=== PATIENT | female | born 1960 | race American Indian/Alaskan Native ===

== ENCOUNTER 2021-12-02 15:25 | Inpatient (IN) | payer MEDICARE ==
--- NOTE | 2021-12-02 15:43 | Emergency Department Report ---
ED Neuro Deficit HPI - General Chief Complaint: Neuro Symptoms/Deficit Stated Complaint: POSS STROKE Time Seen by Provider: 12/02/21 15:29 Source: patient, EMS Mode of arrival: Stretcher Limitations: No Limitations - History of Present Illness Initial Comments: 61-year-old female the past medical history of hypertension and TIA in July 2021 with full recovery (within 30 min without TPA administration) presents to the hospital with complaints of stroke symptoms sudden onset at 2:15 PM while at work. Patient complains of feeling dizzy, double vision, slurred speech. EMS reports that in route to the hospital at approximately 15 they noticed an imp rovement in her neurologic symptoms and clearing of her speech. At time of my assessment at the door at approximately 3:30 PM patient has persistent slurred speech, eye-movement deficit, and complains of lightheadedness therefore code stroke initiated. EMS reports a blood glucose of 111. Patient is currently on aspirin 81 mg with denies other anticoagulant use - Related Data Allergies/Adverse Reactions: Allergies Allergy/AdvReac Type Severity Reaction Status Date / Time No Known Allergies Allergy Unverified 12/02/21 15:35 ED Review of Systems ROS: Stated complaint: POSS STROKE Other details as noted in HPI Comment: All other systems reviewed and negative ED Past Medical Hx - Past Medical History Hx Hypertension: Yes Hx CVA: Yes ED Neuro Physical Exam - General Limitations: No Limitations Suspected Stroke: Yes - NIHSS Assessment Interval: Baseline 1a. Level of Consciousness: alert/keenly responsive 1b. LOC Questions: answers both correctly 1c. LOC Commands: performs tasks correctly 2. Best Gaze: partial gaze palsy (left eye will not cross midline on medial gaze) 3. Visual: no visual loss 4. Facial Palsy: normal symmetrical movement 5b. Motor Arm Right: no drift 5a. Motor Arm Left: no drift 6a. Motor Leg Left: no drift 6b. Motor Leg Right: no drift 7. Limb Ataxia: present 1 limb (left arm) 8. Sensory: normal 9. Best Language: no aphasia 10. Dysarthria: mild/moderate dysarthria 11. Extinction/Inattention: no abnormality Total Score: 3 Stroke Severity: Minor Stroke - Other Other exam information: General: No acute distress Head: Atraumatic Eyes: normal appearance ENT: Moist mucous membranes Neck: Normal appearance, no midline tenderness Chest: Clear to auscultation bilaterally CV: Regular rate and rhythm Abdomen: Soft, normal bowel sounds, nontender, nondistended, no rebound or guarding Back: Normal inspection Extremity: Normal inspection, full range of motion Neuro: Alert, see NIH stroke scale Psych: Appropriate behavior Skin: No rash ED Course Vital Signs 12/02/21 12/02/21 12/02/21 15:30 16:18 16:30 Temperature 98.9 F Pulse Rate 80 78 Pulse Rate [ Left Arm] Respiratory 18 19 Rate Respiratory Rate [Left Arm] Blood Pressure Blood Pressure [Left Arm] Blood Pressure 163/94 [Left] O2 Sat by Pulse 98 98 100 Oximetry O2 Sat by Pulse Oximetry [Left Arm] 12/02/21 12/02/21 12/02/21 16:31 16:45 16:51 Temperature Pulse Rate 80 77 Pulse Rate [ 73 Left Arm] Respiratory 22 22 Rate Respiratory 16 Rate [Left Arm] Blood Pressure Blood Pressure 135/68 [Left Arm] Blood Pressure [Left] O2 Sat by Pulse 97 98 Oximetry O2 Sat by Pulse 99 Oximetry [Left Arm] 12/02/21 12/02/21 12/02/21 17:00 17:06 17:15 Temperature Pulse Rate 73 74 Pulse Rate [ 73 Left Arm] Respiratory 20 19 Rate Respiratory 16 Rate [Left Arm] Blood Pressure 141/68 140/70 Blood Pressure 138/66 [Left Arm] Blood Pressure [Left] O2 Sat by Pulse 100 97 Oximetry O2 Sat by Pulse 99 Oximetry [Left Arm] 12/02/21 12/02/21 12/02/21 17:21 17:31 17:36 Temperature Pulse Rate 77 Pulse Rate [ 70 74 Left Arm] Respiratory 19 Rate Respiratory 16 20 Rate [Left Arm] Blood Pressure 138/75 Blood Pressure 140/70 138/75 [Left Arm] Blood Pressure [Left] O2 Sat by Pulse 97 Oximetry O2 Sat by Pulse 97 97 Oximetry [Left Arm] 12/02/21 12/02/21 12/02/21 17:45 17:51 18:00 Temperature Pulse Rate 74 75 Pulse Rate [ 77 Left Arm] Respiratory 17 16 Rate Respiratory 16 Rate [Left Arm] Blood Pressure 132/62 153/73 Blood Pressure 132/62 [Left Arm] Blood Pressure [Left] O2 Sat by Pulse 95 99 Oximetry O2 Sat by Pulse 97 Oximetry [Left Arm] 12/02/21 12/02/21 12/02/21 18:06 18:15 18:21 Temperature Pulse Rate 76 Pulse Rate [ 80 82 Left Arm] Respiratory 17 Rate Respiratory 16 20 Rate [Left Arm] Blood Pressure 144/74 Blood Pressure 144/74 152/72 [Left Arm] Blood Pressure [Left] O2 Sat by Pulse 97 Oximetry O2 Sat by Pulse 100 100 Oximetry [Left Arm] 12/02/21 12/02/21 12/02/21 18:30 18:36 18:45 Temperature Pulse Rate 79 73 Pulse Rate [ 74 Left Arm] Respiratory 17 20 Rate Respiratory 20 Rate [Left Arm] Blood Pressure 152/72 152/72 Blood Pressure 128/67 [Left Arm] Blood Pressure [Left] O2 Sat by Pulse 98 Oximetry O2 Sat by Pulse 100 Oximetry [Left Arm] - Reevaluation(s) Reevaluation #1: 12/02/21 17:14 Reassessed patient due to concerns of headache after initiation of tPA. Patient states that she did have a mild headache but it has currently resolved and she does not have the pain. We will continue with tPA infusion - Consultations Consultation #1: 12/02/21 15:38 Case discussed with telemetry neurologist 12/02/21 16:32 tPA orders placed after receiving results of CT imaging studies. Patient has been consented for tPA by telemetry neurologist. I rediscussed tPA administration with the patient and she once again consents to treatment. Nurse informed that tPA orders have been placed. Call placed to [place] to approve admission here at [facility] 12/02/21 16:52 case dw Eddie Trujillo and pt may be admitted here. 12/02/21 19:38 case d/w Dr Bob critical care attending, will consult. - Lab Data Result diagrams: 12/02/21 16:17 12/02/21 16:17 Lab Results 12/02/21 12/02/21 12/02/21 Range/Units 16:17 16:17 16:17 WBC 5.9 (4.5-11.0) K/mm3 RBC 3.88 (3.65-5.03) M/mm3 Hgb 11.6 (10.1-14.3) gm/dl Hct 33.8 (30.3-42.9) % MCV 87 (79-97) fl MCH 30 (28-32) pg MCHC 34 (30-34) % RDW 14.1 (13.2-15.2) % Plt Count 239 (140-440) K/mm3 Lymph % (Auto) 33.7 (13.4-35.0) % [place] % (Auto) 8.9 H (0.0-7.3) % Eos % (Auto) 3.5 (0.0-4.3) % Baso % (Auto) 1.3 (0.0-1.8) % Lymph # (Auto) 2.0 (1.2-5.4) K/mm3 [place] # (Auto) 0.5 (0.0-0.8) K/mm3 Eos # (Auto) 0.2 (0.0-0.4) K/mm3 Baso # (Auto) 0.1 (0.0-0.1) K/mm3 Seg Neutrophils % 52.6 (40.0-70.0) % Seg Neutrophils # 3.1 (1.8-7.7) K/mm3 PT 13.4 (12.2-14.9) Sec. INR 0.92 (0.87-1.13) APTT 24.7 (24.2-36.6) Sec. Thrombin Time 18.0 (15.1-19.6) Sec. Sodium 136 L (137-145) mmol/L Potassium 3.9 (3.6-5.0) mmol/L Chloride 100.6 (98-107) mmol/L Carbon Dioxide 25 (22-30) mmol/L Anion Gap 14 mmol/L BUN 13 (7-17) mg/dL Creatinine 0.7 (0.6-1.2) mg/dL Estimated GFR > 60 ml/min BUN/Creatinine Ratio 19 % Glucose 107 H (65-100) mg/dL Calcium 8.9 (8.4-10.2) mg/dL Total Bilirubin < 0.20 (0.1-1.2) mg/dL AST 20 (5-40) units/L ALT 24 (7-56) units/L Alkaline Phosphatase 73 (35-129) units/L Total Creatine Kinase 167 H (30-135) units/L CK-MB (CK-2) 2.6 (0.0-4.0) ng/mL CK-MB (CK-2) Rel Index 1.5 (0-4) Troponin T < 0.010 (0.00-0.029) ng/mL Total Protein 7.6 (6.3-8.2) g/dL Albumin 3.5 L (3.9-5) g/dL Albumin/Globulin Ratio 0.9 % - EKG Data -: EKG Interpreted by [facility] EKG shows normal: sinus rhythm, ST-T waves (no stemi) Rate: normal (78) When compared to previous EKG there are: no significant change (Peer to EMS EKG performed at 3:12 PM prior to arrival) - Radiology Data Radiology results: report reviewed CTA HEAD AND NECK WITH CONTRAST HISTORY: Stroke symptoms COMPARISON: None. TECHNIQUE: All CT scans at this location are performed using CT dose reduction for ALARA by means of automated exposure control.. 3-D/MIP reformats postprocessed. Percentage stenosis is determined by direct quantitative measurements of diseased internal carotid artery diameter compared with normal distal internal carotid artery reference segments or by criteria similar to NASCET where applicable. CONTRAST: 100 ml of Omnipaque 350 FINDINGS: CT HEAD: BRAIN / INTRACRANIAL CONTENTS: No acute hemorrhage, mass effect, midline shift, or hydrocephalus. No appreciable acute large territorial or lacunar infarct. Chronic infarct is seen in the left frontal opercular region. ORBITS: No significant abnormality of visualized orbits. SINUSES / MASTOIDS: No significant abnormality of visualized sinuses and mastoid air cells. CTA HEAD: Intracranial vertebral arteries: The left vertebral artery ends in the left PICA on a developmental basis. Basilar artery: No significant abnormality. Posterior cerebral arteries: origin of the bilateral posterior cerebral arteries is observed. Intracranial internal carotid arteries: Mild atherosclerotic plaque in both carotid siphons without significant stenosis. Anterior cerebral arteries: No significant abnormality. Middle cerebral arteries: No significant abnormality. Dural venous sinuses:Not optimally opacified. No significant abnormality. CTA NECK: Aortic arch: Mild atherosclerotic plaque without significant stenosis. 2 vessel branching pattern. Cervical vertebral arteries: Developmental dominance of the right vertebral artery without significant stenosis. Common carotid arteries: No significant abnormality. Cervical internal carotid arteries: Mild atherosclerotic plaque in both carotid bulbs and proximal cervical ICAs without significant stenosis. Additional findings: Emphysema in the visualized lung apices. IMPRESSION: 1. No acute intracranial abnormality. 2. No flow-limiting stenosis or large vessel occlusion in the neck or intracranial arteries. - Medical Decision Making 61-year-old female presents to the hospital with stroke symptoms. Patient received tPA in the ED. Neurology consult appreciated. CT head, CT angio head and neck do not show acute findings. Labs unremarkable. EKG normal sinus. Patient will be admitted to ICU for further stroke treatment and work-up Critical Care Time: Yes Critical care time in (mins) excluding proc time.: 40 Critical care attestation.: If time is entered above; I have spent that time in minutes in the direct care of this critically ill patient, excluding procedure time. Critical Care Time: 40 Minutes of critical care time excluding procedures were used in the care of the patient. I obtained history from EMS at the bedside. I discussed treatment plan with the nursing team members. I reviewed electronic record. Patient required multiple interventions and reassessments. Spoke with hospitalist and consultants for collaborative care ED Disposition Clinical Impression: Acute CVA (cerebrovascular accident), Slurred speech, Diplopia, Received intravenous tissue plasminogen activator (tPA) in emergency department Disposition: ADMITTED INPATIENT Is pt being admited?: Yes Does the pt Need Aspirin: No Condition: Stable Time of Disposition: 17:20 (Dr. Dee/hospitalist)
[2021-12-02] MEDS ORDERED: ALTEPLASE 100 MG INJ KIT ONE ×2 (16:08→16:23)
--- NOTE | 2021-12-02 16:13 | Emergency Department Report ---
Blank Doc - Documentation Documentation: [facility] Consult Note # Demographics Consult Type: Acute Stroke Level 1 (0-4.5 hrs) Patient Location: Emergency Room First Name: Aislinn Carter Last Name: Luis Date of : 1960 Age: 61 Gender: Female Facility: [facility] Time of Initial Page (Eastern Time): 12/02/2021, 15:34 Time of Return Call (Eastern Time): 12/02/2021, 15:35 # HPI History: 61 year old female with hx of stroke in the past with no residual deficits presents from work with vertigo, diplopia and dysarthria. Pts symptoms resolved by EMS assessment at 3:15 pm and recurred in ED as per ED provider assessment. Noted right MLF involvement as well as dysarthria. Pt had similar episode in July but did not get tpa and states it improved on its own in about 30 mins. Last Known Normal: 3:15 pm # Scores Level of Consciousness 1a: [0] = Alert; keenly responsive LOC Questions 1b: [0] = Answers both questions correctly LOC Commands 1c: [0] = Performs both tasks correctly Best Gaze 2: [0] = Normal Visual 3: [0] = No visual loss Facial Palsy 4: [0] = Normal symmetrical movements Motor Arm Left 5a: [0] = No drift Motor Arm Right 5b: [0] = No drift Motor Leg Left 6a: [1] = Drift Motor Leg Right 6b: [0] = No drift Limb Ataxia 7: [0] = Absent Sensory 8: [1] = [id number] sensory loss Best Language 9: [0] = No aphasia Dysarthria 10: [1] = [id number] dysarthria Extinction and Inattention 11: [0] = No abnormality NIHSS Total: 3 # Exam Cranial Nerves: right mlf # [id number] Past Medical History: hypertension stroke Social History: non-smoker occasional alcohol no drugs lives with family # Data Head CT: no bleed preliminarily reviewed by me, please refer to radiology read for official reading per radiologist read # Assessment Impression: Likely acute stroke. Pt meets tpa criteria. Pending official CTH report. I did not see any obvious hemorrhage. Stroke work up. # Plan Thrombolytic/Intervention: IV thrombolytic and possible IA candidate Thrombolytic Dosing: IV alteplase 0.9 mg/kg, max dose 90 mg; 10% of dose given over 1 minute IVP, remaining 90% given as infusion over 1 hour Thrombolytic Exclusion: > 4.5 hours Possible IA Candidate: CTA pending Intraarterial Exclusion: cta pending Time IV Thrombolytic Recommended ( Time): 12/02/2021, 15:11 Blood Pressure Management: IV fluid bolus Labs: CBC comprehensive metabolic panel hemoglobin A1c lipid panel troponin TSH ua Imaging: (urgency: STAT): CT Head without contrast CT Angiogram Head and CT Angiogram Neck Imaging: (urgency: routine): MRI Brain without contrast Diagnostic Test: echo with bubble study Thrombolytic Administration Recommendations: I reviewed the risks/benefits/alternatives of IV thrombolytic therapy with the patient. They understand there is potential of life threatening hemorrhage from IV thrombolysis. I stated that I believe benefits outweighs risk. They wish to proceed with IV thrombolytic therapy. I have collected independent history specific to time last normal or last known well. We have collaborated with the ED provider and at this time, we have the most current timeline with the information that is available. BP goal< 180/105 for 24hrs post Thrombolytic administration Use Labetolol 10-20mg IV prn or Nicardipine gtt to maintain BP parameters No antiplatelets or anticoagulants for next 24 hrs unless indicated for emergent IA procedure or other life threatening situation ICU admission Call back if there is any decline in neurological condition Transfer to facility that is IA capable for consideration of mechanical thrombectomy symptoms deemed to be disabling, despite low NIHSS Other: If patient has any neurological deterioration please call me back immediately telemetry monitoring I have discussed my recommendations with the referring provider Disposition: admit # Demographics First Name: Aislinn Carter Last Name: Luis Facility: [facility]
[2021-12-02 16:26] LABS: Basophils # (Auto) 0.1 K/mm3 (0.0-0.1); Basophils % (Auto) 1.3 % (0.0-1.8); Eosinophils # (Auto) 0.2 K/mm3 (0.0-0.4); Eosinophils % (Auto) 3.5 % (0.0-4.3); Hematocrit 33.8 % (30.3-42.9); Hemoglobin 11.6 gm/dl (10.1-14.3); Lymphocytes % (Auto) 33.7 % (13.4-35.0); Mean Corpuscular HGB Conc 34 % (30-34); Mean Corpuscular Volume 87 fl (79-97); Monocytes # (Auto) 0.5 K/mm3 (0.0-0.8); Monocytes % (Auto) 8.9 % (0.0-7.3); Platelet Count 239 K/mm3 (140-440); Red Blood Count 3.88 M/mm3 (3.65-5.03); Red Cell Distribution Width 14.1 % (13.2-15.2)
--- NOTE | 2021-12-02 16:30 | Cat Scan Report ---
CTA HEAD AND NECK WITH CONTRAST HISTORY: Stroke symptoms COMPARISON: None. TECHNIQUE: All CT scans at this location are performed using CT dose reduction for ALARA by means of automated exposure control.. 3-D/MIP reformats postprocessed. Percentage stenosis is determined by d irect quantitative measurements of diseased internal carotid artery diameter compared with normal dis theresa internal carotid artery reference segments or by criteria similar to NASCET where applicable. CONTRAST: 100 ml of Omnipaque 350 FINDINGS: CT HEAD: BRAIN / INTRACRANIAL CONTENTS: No acute hemorrhage, mass effect, midline shift, or hydrocephalus. No appreciable acute large territorial or lacunar infarct. Chronic infarct is seen in the left frontal o percular region. ORBITS: No significant abnormality of visualized orbits. SINUSES / MASTOIDS: No significant abnormality of visualized sinuses and mastoid air cells. CTA HEAD: Intracranial vertebral arteries: The left vertebral artery ends in the left PICA on a developmental b asis. Basilar artery: No significant abnormality. Posterior cerebral arteries: origin of the bilateral posterior cerebral arteries is observed. Intracranial internal carotid arteries: Mild atherosclerotic plaque in both carotid siphons without s ignificant stenosis. Anterior cerebral arteries: No significant abnormality. Middle cerebral arteries: No significant abnormality. Dural venous sinuses:Not optimally opacified. No significant abnormality. CTA NECK: Aortic arch: Mild atherosclerotic plaque without significant stenosis. 2 vessel branching pattern. Cervical vertebral arteries: Developmental dominance of the right vertebral artery without significan t stenosis. Common carotid arteries: No significant abnormality. Cervical internal carotid arteries: Mild atherosclerotic plaque in both carotid bulbs and proximal ce rvical ICAs without significant stenosis. Additional findings: Emphysema in the visualized lung apices. IMPRESSION: 1. No acute intracranial abnormality. 2. No flow-limiting stenosis or large vessel occlusion in the neck or intracranial arteries. Signer Name: Jacobo Ch MD Signed: 12/02/2021 4:26 PM Workstation Name: [id number]
[2021-12-02] MEDS ORDERED: SODIUM CHLORIDE 0.9% 50 ML IVPB IV ONE (16:32)
[2021-12-02] MEDS ORDERED: ALTEPLASE 100 MG INJ KIT IV ONE ×2 (16:32)
[2021-12-02 16:47] LABS: INR 0.92 (0.87-1.13); Partial Thromboplastin Time 24.7 Sec. (24.2-36.6)
[2021-12-02 16:55] LABS: Creatine Kinase MB 2.6 ng/mL (0.0-4.0)
[2021-12-02 16:56] LABS: Alanine Aminotransferase 24 units/L (7-56); Albumin 3.5 g/dL (3.9-5); Blood Urea Nitrogen 13 mg/dL (7-17); Calcium 8.9 mg/dL (8.4-10.2); Hemolysis Index 8
[2021-12-02 17:13] LABS: BUN/Creatinine Ratio 19
[2021-12-02] MEDS ORDERED: MORPHINE 2 MG/1 ML INJ IV PRN (17:21)
[2021-12-02] MEDS ORDERED: ACETAMINOPHEN 325 MG TAB PO PRN (17:21)
[2021-12-03] MEDS ORDERED: ONDANSETRON 4 MG/2 ML INJ IV PRN (01:53)
[2021-12-03] MEDS ORDERED: ACETAMINOPHEN 325 MG TAB PO PRN (01:53)
[2021-12-03] MEDS ORDERED: SODIUM CHLORIDE 0.9% 1000 ML 1,000 ML IV SCH (02:00)
[2021-12-03 05:52] LABS: Basophils # (Auto) 0.1 K/mm3 (0.0-0.1); Eosinophils # (Auto) 0.3 K/mm3 (0.0-0.4); Hematocrit 37.2 % (30.3-42.9); Hemoglobin 11.9 gm/dl (10.1-14.3); Lymphocytes # (Auto) 1.9 K/mm3 (1.2-5.4); Lymphocytes % (Auto) 35.5 % (13.4-35.0); Mean Corpuscular HGB Conc 32 % (30-34); Mean Corpuscular Volume 89 fl (79-97); Monocytes # (Auto) 0.4 K/mm3 (0.0-0.8); Platelet Count 253 K/mm3 (140-440); Red Blood Count 4.19 M/mm3 (3.65-5.03); Red Cell Distribution Width 14.5 % (13.2-15.2)
[2021-12-03 06:17] LABS: Alanine Aminotransferase 24 units/L (7-56); Albumin 3.4 g/dL (3.9-5); BUN/Creatinine Ratio 16; Blood Urea Nitrogen 13 mg/dL (7-17); Hemolysis Index 4
--- NOTE | 2021-12-03 06:28 | History and Physical Report ---
History of Present Illness Date of examination: 12/02/21 Date of admission: 12/02/21 17:20 Chief complaint: Sudden onset of left-sided weakness associated with dysarthria and diplopia at 2:30 PM History of present illness: 51-year-old female with history of hypertension and TIA in July 2021 which resolved completely comes in for sudden onset of dysarthria and diplopia ataxic gait with left-sided weakness While at work. Patient could not walk because of the left-sided weakness and was very unsteady while trying to walk. Patient continued to have slurred speech and diplopia and dizziness. Code stroke was initiated. Teleneurology was consulted. Teleneurology was in agreement about acute CVA involving the right cerebral hemisphere. Teleneurology advised the ER to give tPA and tPA was given. Post tPA patient started improving. I performed the swallow screen and was able to swallow. . - Past Medical History --Hypertension: Yes --TIA -Past surgical history --None - Social history --No smoking or alcohol - Family history --Htn -Review of Systems ROS: Constitutional no weight loss or weight gain no fever or chills HEENT no sore throat no post nasal drip no diplopia Neck no neck stiffness no lymph gland enlargement Chest and lungs no shortness of breath cough or wheezing CVS no chest pain no diaphoresis no palpitations GI no nausea no vomiting no diarrhea Genitourinary system no dysuria no flank pain Musculoskeletal system no muscle pains no joint pains [employer] weakness weakness associated with dysarthria and diplopia Skin no rash no itching Psychiatric no depression no homicidal or suicidal tendencies Hematologic no lymphedema or bruising Endocrine no polydipsia no polyuria no cold intolerance no heat intolerance Medications and Allergies Allergies Allergy/AdvReac Type Severity Reaction Status Date / Time No Known Allergies Allergy Unverified 12/02/21 15:35 Active Meds: Active Medications Acetaminophen (Acetaminophen 325 Mg Tab) 650 mg PO Q4H PRN PRN Reason: Pain MILD(1-3)/Fever >100.5/BARNETT Atorvastatin Calcium (Atorvastatin 40 Mg Tab) 40 mg PO QHS SANTANA Famotidine (Famotidine 20 Mg/2 Ml Inj) 20 mg IV BID SANTANA Labetalol HCl (Labetalol 20 Mg/4 Ml Inj) 10 mg IV Q5MIN PRN PRN Reason: to maintain SBP < 180 Morphine Sulfate (Morphine 2 Mg/1 Ml Inj) 2 mg IV Q4H PRN PRN Reason: Pain, Moderate (4-6) Ondansetron HCl (Ondansetron 4 Mg/2 Ml Inj) 4 mg IV Q8H PRN PRN Reason: Nausea And Vomiting Sodium Chloride (Sodium Chloride 0.9% 10 Ml Flush Syringe) 10 ml IV BID SANTANA Sodium Chloride (Sodium Chloride 0.9% 10 Ml Flush Syringe) 10 ml IV PRN PRN PRN Reason: LINE FLUSH Exam - Constitutional Vitals: Temp Pulse Resp BP Pulse Ox 97.9 F 72 16 124/63 94 12/03/21 04:00 12/03/21 06:00 12/03/21 06:00 12/03/21 06:00 12/03/21 06:00 General appearance: Present: no acute distress, well-nourished - EENT Eyes: Present: PERRL ENT: hearing intact, clear oral mucosa - Neck Neck: Present: supple, normal ROM - Respiratory Respiratory effort: normal Respiratory: bilateral: CTA - Cardiovascular Heart rate: 78 Rhythm: regular Heart Sounds: Present: S1 & S2. Absent: rub, click - Extremities Extremities: pulses symmetrical, No edema Peripheral Pulses: within normal limits - Abdominal General gastrointestinal: Present: soft, non-tender, non-distended, normal bowel sounds Female genitourinary: Present: normal - Integumentary Integumentary: Present: clear, warm, dry - Musculoskeletal Musculoskeletal: strength equal bilaterally, left sided weakness (Had left-sided weakness during initial exam with the ED physician. Normal during my exam) - Psychiatric Psychiatric: appropriate mood/affect, intact judgment & insight - Neurologic Neurologic: CNII-XII intact, focal deficits (Left-sided weakness initially which improved after tPA), moves all extremities HEART Score - HEART Score History: Slightly suspicious Age: 45-65 Risk factors: 1-2 risk factors Troponin: Troponin T < 0.010 ng/mL (0.00-0.029) 12/02/21 16:17 Troponin: < normal limit - Critical Actions Critical Actions: 0-3 pts:0.9-1.7%risk of adverse cardiac event.Candidate for discharge Results - Labs CBC & Chem 7: 12/03/21 05:30 12/03/21 05:30 Labs: Laboratory Last Values WBC 5.4 K/mm3 (4.5-11.0) 12/03/21 05:30 RBC 4.19 M/mm3 (3.65-5.03) 12/03/21 05:30 Hgb 11.9 gm/dl (10.1-14.3) 12/03/21 05:30 Hct 37.2 % (30.3-42.9) 12/03/21 05:30 MCV 89 fl (79-97) 12/03/21 05:30 MCH 28 pg (28-32) 12/03/21 05:30 MCHC 32 % (30-34) 12/03/21 05:30 RDW 14.5 % (13.2-15.2) 12/03/21 05:30 Plt Count 253 K/mm3 (140-440) 12/03/21 05:30 Lymph % (Auto) 35.5 % (13.4-35.0) H 12/03/21 05:30 Frio % (Auto) 7.0 % (0.0-7.3) 12/03/21 05:30 Eos % (Auto) 5.0 % (0.0-4.3) H 12/03/21 05:30 Baso % (Auto) 1.0 % (0.0-1.8) 12/03/21 05:30 Lymph # (Auto) 1.9 K/mm3 (1.2-5.4) 12/03/21 05:30 Frio # (Auto) 0.4 K/mm3 (0.0-0.8) 12/03/21 05:30 Eos # (Auto) 0.3 K/mm3 (0.0-0.4) 12/03/21 05:30 Baso # (Auto) 0.1 K/mm3 (0.0-0.1) 12/03/21 05:30 Seg Neutrophils % 51.5 % (40.0-70.0) 12/03/21 05:30 Seg Neutrophils # 2.8 K/mm3 (1.8-7.7) 12/03/21 05:30 PT 13.4 Sec. (12.2-14.9) 12/02/21 16:17 INR 0.92 (0.87-1.13) 12/02/21 16:17 APTT 24.7 Sec. (24.2-36.6) 12/02/21 16:17 Thrombin Time 18.0 Sec. (15.1-19.6) 12/02/21 16:17 Sodium 138 mmol/L (137-145) 12/03/21 05:30 Potassium 3.6 mmol/L (3.6-5.0) 12/03/21 05:30 Chloride 102.9 mmol/L (98-107) 12/03/21 05:30 Carbon Dioxide 25 mmol/L (22-30) 12/02/21 16:17 Anion Gap 14 mmol/L 12/02/21 16:17 BUN 13 mg/dL (7-17) 12/02/21 16:17 Creatinine 0.7 mg/dL (0.6-1.2) 12/02/21 16:17 Estimated GFR > 60 ml/min 12/03/21 05:30 BUN/Creatinine Ratio 16 % 12/03/21 05:30 Glucose 107 mg/dL (65-100) H 12/02/21 16:17 Calcium 8.9 mg/dL (8.4-10.2) 12/02/21 16:17 Total Bilirubin < 0.20 mg/dL (0.1-1.2) 12/02/21 16:17 AST 20 units/L (5-40) 12/02/21 16:17 ALT 24 units/L (7-56) 12/02/21 16:17 Alkaline Phosphatase 73 units/L (35-129) 12/02/21 16:17 Total Creatine Kinase 167 units/L (30-135) H 12/02/21 16:17 CK-MB (CK-2) 2.6 ng/mL (0.0-4.0) 12/02/21 16:17 CK-MB (CK-2) Rel Index 1.5 (0-4) 12/02/21 16:17 Troponin T < 0.010 ng/mL (0.00-0.029) 12/02/21 16:17 Total Protein 7.6 g/dL (6.3-8.2) 12/02/21 16:17 Albumin 3.5 g/dL (3.9-5) L 12/02/21 16:17 Albumin/Globulin Ratio 0.9 % 12/03/21 05:30 Short CBC 12/02/21 12/03/21 Range/Units 16:17 05:30 WBC 5.9 5.4 (4.5-11.0) K/mm3 Hgb 11.6 11.9 (10.1-14.3) gm/dl Hct 33.8 37.2 (30.3-42.9) % Plt Count 239 253 (140-440) K/mm3 BMP 12/02/21 12/03/21 16:17 05:30 Sodium 136 L 138 Potassium 3.9 3.6 Chloride 100.6 102.9 Carbon Dioxide 25 25 BUN 13 13 Creatinine 0.7 0.8 Glucose 107 H 131 H Calcium 8.9 9.0 Cardiac Enzymes 12/02/21 Range/Units 16:17 Total Creatine Kinase 167 H (30-135) units/L CK-MB (CK-2) 2.6 (0.0-4.0) ng/mL Troponin T < 0.010 (0.00-0.029) ng/mL Liver Function 12/02/21 12/03/21 Range/Units 16:17 05:30 Total Bilirubin < 0.20 0.20 (0.1-1.2) mg/dL AST 20 21 (5-40) units/L ALT 24 24 (7-56) units/L Alkaline Phosphatase 73 72 (35-129) units/L Albumin 3.5 L 3.4 L (3.9-5) g/dL - Imaging and Cardiology EKG: report reviewed (Normal sinus rhythm no acute ST-T wave changes) Imaging and Cardiology: Head CT No acute findings CTA of the head and neck Intracranial vertebral arteries: The left vertebral artery ends in the left PICA on a developmental basis. Basilar artery no significant abnormality. Posterior cerebral arteries. No evidence of bilateral posterior cerebral arteries resolved. Intracranial internal carotid arteries mild atherosclerotic plaque in both carotid siphons without significant stenosis. Anterior cerebral arteries no significant abnormalities. 70. No significant abnormalities. Severely neck was normal. Roy/IV: Voiding Method External Female Catheter Assessment and Plan Assessment and plan: Critical care statement The high probability OF a clinically significant sudden or life-threatening deterioration of the cardiorespiratory system and endocrine system required my full and direct attention, intervention and postoperative management. The aggregate critical care time was 40 minutes. The time is in addition to time spent performing reported procedures but includes the followin: Data review and interpretation 2: Patient assessment and monitoring of vital signs 3: Documentation 4:: Medication orders and management Advance Directives: Yes (Full code) VTE prophylaxis?: Chemical Plan of care discussed with patient/family: Yes - Patient Problems (1) Acute CVA (cerebrovascular accident) Current Visit: Yes Status: Acute Plan to address problem: S/p tPA Admit to ICU Acute CVA protocol Frequent neurochecks Repeat CT head in the a.m. for status post tPA MRI brain when available Neurology consult Swallow screen Permissive blood pressure (2) Hypertension Current Visit: Yes Status: Chronic Qualifiers: Hypertension type: primary hypertension Qualified Code(s): I10 - Essential (primary) hypertension Plan to address problem: Continue home anti-hypertensives and adjust medications accordingly (3) Hyperlipidemia Current Visit: Yes Status: Chronic Qualifiers: Hyperlipidemia type: mixed hyperlipidemia Qualified Code(s): E78.2 - Mixed hyperlipidemia Plan to address problem: Initiated on Lipitor 40 mg p.o. daily (4) Obesity (BMI 30.0-34.9) Current Visit: Yes Status: Chronic Plan to address problem: Patient to be counseled about losing weight and healthy lifestyle and walking on a regular basis To prevent further strokes/PA. (5) Received intravenous tissue plasminogen activator (tPA) in emergency department Current Visit: Yes Status: Acute Plan to address problem: S/p tPA in the emergency room Doing well Admission to ICU for close monitoring (6) DVT prophylaxis Current Visit: Yes Status: Acute Plan to address problem: To start heparin after 36 to 48 hours GI prophylaxis
[2021-12-03] MEDS: FAMOTIDINE 20 MG/2 ML INJ IV SCH ×2 (09:45→21:00)
[2021-12-03] MEDS: LOSARTAN 25 MG TAB PO SCH (09:47)
--- NOTE | 2021-12-03 11:04 | Consultation ---
History of Present Illness - Reason for Consult Consult date: 12/03/21 Stroke with TPA, post TPA ICU admit Requesting physician: ELADIO MOELLER - History of Present Illness 61 y/o female admitted with stroke like symptoms s/p TPA administration around 16:30 yesterday. Medications and Allergies Allergies Allergy/AdvReac Type Severity Reaction Status Date / Time No Known Allergies Allergy Unverified 12/02/21 15:35 Active Meds: Active Medications Acetaminophen (Acetaminophen 325 Mg Tab) 650 mg PO Q4H PRN PRN Reason: Pain MILD(1-3)/Fever >100.5/BARNETT Atorvastatin Calcium (Atorvastatin 40 Mg Tab) 40 mg PO QHS [facility] Famotidine (Famotidine 20 Mg/2 Ml Inj) 20 mg IV BID [facility] Last Admin: 12/03/21 09:45 Dose: 20 mg Labetalol HCl (Labetalol 20 Mg/4 Ml Inj) 10 mg IV Q5MIN PRN PRN Reason: to maintain SBP < 180 Losartan Potassium (Losartan 25 Mg Tab) 25 mg PO QDAY [facility] Last Admin: 12/03/21 09:47 Dose: 25 mg Morphine Sulfate (Morphine 2 Mg/1 Ml Inj) 2 mg IV Q4H PRN PRN Reason: Pain, Moderate (4-6) Ondansetron HCl (Ondansetron 4 Mg/2 Ml Inj) 4 mg IV Q8H PRN PRN Reason: Nausea And Vomiting Sodium Chloride (Sodium Chloride 0.9% 10 Ml Flush Syringe) 10 ml IV BID [facility] Last Admin: 12/03/21 09:46 Dose: 10 ml Sodium Chloride (Sodium Chloride 0.9% 10 Ml Flush Syringe) 10 ml IV PRN PRN PRN Reason: LINE FLUSH Exam - Constitutional Vitals: Temp Pulse Resp BP Pulse Ox 98.0 F 67 14 156/70 100 12/03/21 07:32 12/03/21 10:00 12/03/21 10:00 12/03/21 10:00 12/03/21 10:00 Results - Labs CBC & Chem 7: 12/03/21 05:30 12/03/21 05:30 Labs: Abnormal lab results 12/02/21 12/02/21 12/03/21 Range/Units 16:17 16:17 05:30 Lymph % (Auto) 35.5 H (13.4-35.0) % Jenkins % (Auto) 8.9 H (0.0-7.3) % Eos % (Auto) 5.0 H (0.0-4.3) % Sodium 136 L (137-145) mmol/L Glucose 107 H (65-100) mg/dL Total Creatine Kinase 167 H (30-135) units/L Albumin 3.5 L (3.9-5) g/dL 12/03/21 Range/Units 05:30 Lymph % (Auto) (13.4-35.0) % Jenkins % (Auto) (0.0-7.3) % Eos % (Auto) (0.0-4.3) % Sodium (137-145) mmol/L Glucose 131 H (65-100) mg/dL Total Creatine Kinase (30-135) units/L Albumin 3.4 L (3.9-5) g/dL Assessment and Plan 61 y/o, female with stroke like symptoms s/p TPA 1. q1hour neuro checks 2. Repeat head CT/MRI in 24 hours 3. Follow up neurology recs, and neuro imaging 4. Should be stable for transfer after 16:30 5. Start anticoagulation then once repeat head CT/MRI is stable.
--- NOTE | 2021-12-03 14:44 | Electrocardiograph Report ---
[facility] Test Date: 2021-12-02 Test Time: 16:16:05 Pat Name: ALEX BURROWS Department: Room: A260 1 Gender: F Clinical Nutritionist: MARYA : 1960 Requested By: ELADIO MOELLER Order Number: [id number] Reading MD: Artis Pimentel Measurements Intervals [place] Rate: 78 P: 76 MO: 160 QRS: 66 QRSD: 105 T: 52 QT: 430 QTc: 492 Interpretive Statements Sinus rhythm No previous ECG available for comparison Electronically Signed On 12-03-2021 14:43:57 EDT by Artis Pimentel
--- NOTE | 2021-12-03 14:49 | Progress Note ---
Assessment and Plan Assessment and plan: This is a 61 year old female with HTN and TIA (07/2021) admitted with acute CVA s/p TPA Neuro: Acute CVA s/p tPA -Neurology consulted, appreciate recommendations -CT head showed chronic infarct left frontal region -tPA administration 1630 on 12/02 -Neuro checks per protocol -CTA head and neck showed no acute intracranial abnormality, no flow-limiting stenosis or large vessel occlusion -MRI brain pending -Repeat CT head pending -Bilateral carotid Doppler ultrasound pending -Echocardiogram pending -Lipid panel noted -Hemoglobin A1C pending -Lipitor -Aspirin/Plavix initiation [address] head with no acute hemorrhage -PT/OT consulted, appreciate recommendations Cardiac: h/o HTN -Blood pressure monitoring per protocol -Cozaar -Echocardiogram pending Respiratory: NAD -Supplemental oxygenation as needed -SPO2 monitor per protocol -Pulmonary hygiene GI: Obesity -Cardiac -PPI -CC cardiac diet : NAD -Monitor intake and output -Renally dose medications -Avoid nephrotoxic medications ID: NAD -Monitor WBC and temperature curve Endo: NAD -Avoid hypoglycemia Heme: NAD -Trend CBC -Transfuse hemoglobin less than 7 -SCDs to BLE while in bed The high probability of a clinically significant, sudden or life threatening deterioration of the [neuro] system(s) required my full and direct attention, intervention and personal management. The aggregate critical care time was [60] minutes. This time is in addition to time spent performing reported procedures but includes the following: [x] Data Review and interpretation [x] Patient assessment and monitoring of vital signs [x] Documentation [x] Medication orders and management Disposition Plan: icu Total Time Spent with Patient (Minutes): 60 History Interval history: This is a 61-year-old female with HTN and TIA (07/2021) who presented to the emergency department with left-sided weakness with unsteadiness, dysarthria, diplopia which started at 2:30 PM on 12/02. Code stroke was initiated, initial NIHSS of 3 and teleneurology was consulted. Teleneurology cleared the patient for tPA. Patient was admitted to the hospitalist service with consults to neurology and CCM and rehab services. Hospital course to date: 12/03: Patient has slight right-sided droop without any other deficits. Bilateral carotid ultrasounds, repeat CT head ordered for today and MRI brain ordered. Likely discharge with aspirin and Plavix. Hospitalist Physical - Constitutional Vitals: Temp Pulse Resp BP Pulse Ox 97.7 F 70 20 131/51 97 12/03/21 12:39 12/03/21 14:00 12/03/21 14:00 12/03/21 14:00 12/03/21 14:00 General appearance: Present: no acute distress, well-nourished - EENT Eyes: Present: PERRL, EOM intact ENT: clear oral mucosa - Neck Neck: Present: normal ROM - Respiratory Respiratory effort: normal Respiratory: bilateral: CTA - Cardiovascular Rhythm: regular Heart Sounds: Present: S1 & S2. Absent: systolic murmur, diastolic murmur - Extremities Extremities: no ischemia, pulses intact, pulses symmetrical, No edema, normal temperature, normal color Peripheral Pulses: within normal limits - Abdominal General gastrointestinal: soft, non-tender, non-distended, normal bowel sounds - Integumentary Integumentary: Present: warm, dry - Psychiatric Psychiatric: cooperative - Neurologic Neurologic: CNII-XII intact, moves all extremities, other (slight facial droop noted to left) - Allied Health Allied health notes reviewed: nursing HEART Score - HEART Score Age: 45-65 Risk factors: 1-2 risk factors Troponin: Troponin T < 0.010 ng/mL (0.00-0.029) 12/02/21 16:17 Troponin: < normal limit - Critical Actions Critical Actions: 0-3 pts:0.9-1.7%risk of adverse cardiac event.Candidate for discharge Results - Labs CBC & Chem 7: 12/03/21 05:30 12/03/21 05:30 Labs: Laboratory Last Values WBC 5.4 K/mm3 (4.5-11.0) 12/03/21 05:30 RBC 4.19 M/mm3 (3.65-5.03) 12/03/21 05:30 Hgb 11.9 gm/dl (10.1-14.3) 12/03/21 05:30 Hct 37.2 % (30.3-42.9) 12/03/21 05:30 MCV 89 fl (79-97) 12/03/21 05:30 MCH 28 pg (28-32) 12/03/21 05:30 MCHC 32 % (30-34) 12/03/21 05:30 RDW 14.5 % (13.2-15.2) 12/03/21 05:30 Plt Count 253 K/mm3 (140-440) 12/03/21 05:30 Lymph % (Auto) 35.5 % (13.4-35.0) H 12/03/21 05:30 [place] % (Auto) 7.0 % (0.0-7.3) 12/03/21 05:30 Eos % (Auto) 5.0 % (0.0-4.3) H 12/03/21 05:30 Baso % (Auto) 1.0 % (0.0-1.8) 12/03/21 05:30 Lymph # (Auto) 1.9 K/mm3 (1.2-5.4) 12/03/21 05:30 [place] # (Auto) 0.4 K/mm3 (0.0-0.8) 12/03/21 05:30 Eos # (Auto) 0.3 K/mm3 (0.0-0.4) 12/03/21 05:30 Baso # (Auto) 0.1 K/mm3 (0.0-0.1) 12/03/21 05:30 Seg Neutrophils % 51.5 % (40.0-70.0) 12/03/21 05:30 Seg Neutrophils # 2.8 K/mm3 (1.8-7.7) 12/03/21 05:30 PT 13.4 Sec. (12.2-14.9) 12/02/21 16:17 INR 0.92 (0.87-1.13) 12/02/21 16:17 APTT 24.7 Sec. (24.2-36.6) 12/02/21 16:17 Thrombin Time 18.0 Sec. (15.1-19.6) 12/02/21 16:17 Sodium 138 mmol/L (137-145) 12/03/21 05:30 Potassium 3.6 mmol/L (3.6-5.0) 12/03/21 05:30 Chloride 102.9 mmol/L (98-107) 12/03/21 05:30 Carbon Dioxide 25 mmol/L (22-30) 12/03/21 05:30 Anion Gap 14 mmol/L 12/03/21 05:30 BUN 13 mg/dL (7-17) 12/03/21 05:30 Creatinine 0.8 mg/dL (0.6-1.2) 12/03/21 05:30 Estimated GFR > 60 ml/min 12/03/21 05:30 BUN/Creatinine Ratio 16 % 12/03/21 05:30 Glucose 131 mg/dL (65-100) H 12/03/21 05:30 Calcium 9.0 mg/dL (8.4-10.2) 12/03/21 05:30 Total Bilirubin 0.20 mg/dL (0.1-1.2) 12/03/21 05:30 AST 21 units/L (5-40) 12/03/21 05:30 ALT 24 units/L (7-56) 12/03/21 05:30 Alkaline Phosphatase 72 units/L (35-129) 12/03/21 05:30 Total Creatine Kinase 167 units/L (30-135) H 12/02/21 16:17 CK-MB (CK-2) 2.6 ng/mL (0.0-4.0) 12/02/21 16:17 CK-MB (CK-2) Rel Index 1.5 (0-4) 12/02/21 16:17 Troponin T < 0.010 ng/mL (0.00-0.029) 12/02/21 16:17 Total Protein 7.2 g/dL (6.3-8.2) 12/03/21 05:30 Albumin 3.4 g/dL (3.9-5) L 12/03/21 05:30 Albumin/Globulin Ratio 0.9 % 12/03/21 05:30 Roy/IV: Voiding Method External Female Catheter Active Medications - Current Medications Current Medications: Generic Name Dose Route Start Last Admin Trade Name Freq PRN Reason Stop Dose Admin Acetaminophen 650 mg 12/03/21 01:53 Acetaminophen 325 Mg Tab PO Q4H PRN Pain MILD(1-3)/Fever >100.5/BARNETT Atorvastatin Calcium 40 mg 12/03/21 22:00 Atorvastatin 40 Mg Tab PO QHS SANTANA Famotidine 20 mg 12/03/21 10:00 12/03/21 09:45 Famotidine 20 Mg/2 Ml Inj IV 20 mg BID SANTANA Administration Labetalol HCl 10 mg 12/02/21 16:32 Labetalol 20 Mg/4 Ml Inj IV Q5MIN PRN to maintain SBP < 180 Losartan Potassium 25 mg 12/03/21 10:00 12/03/21 09:47 Losartan 25 Mg Tab PO 25 mg QDAY SANTANA Administration Morphine Sulfate 2 mg 12/02/21 17:21 Morphine 2 Mg/1 Ml Inj IV Q4H PRN Pain, Moderate (4-6) Ondansetron HCl 4 mg 12/03/21 01:53 Ondansetron 4 Mg/2 Ml Inj IV Q8H PRN Nausea And Vomiting Sodium Chloride 10 ml 12/03/21 10:00 12/03/21 09:46 Sodium Chloride 0.9% 10 Ml Flush Syringe IV 10 ml BID SANTANA Administration Sodium Chloride 10 ml 12/03/21 01:53 Sodium Chloride 0.9% 10 Ml Flush Syringe IV PRN PRN LINE FLUSH
--- NOTE | 2021-12-03 17:58 | Cat Scan Report ---
CT head/brain wo con INDICATION: s/p TPA. TECHNIQUE: Routine CT head without contrast. All CT scans at this location are performed using CT dos e reduction for ALARA by means of automated exposure control. COMPARISON: Head CT done yesterday. FINDINGS: BRAIN / INTRACRANIAL CONTENTS: No acute hemorrhage, mass effect, midline shift, or hydrocephalus. No appreciable acute large territorial or lacunar infarct. Stable chronic infarct in the left frontal op ercular region. ORBITS: No significant abnormality of visualized orbits. SINUSES / MASTOIDS: No significant abnormality of visualized sinuses and mastoid air cells. ADDITIONAL FINDINGS: None. IMPRESSION: 1. No acute intracranial abnormality. No adverse change from the prior exam. Signer Name: Jacobo Ch MD Signed: 12/03/2021 5:54 PM Workstation Name: [id number]
--- NOTE | 2021-12-04 08:15 | Progress Note ---
Assessment and Plan Assessment and plan: History Interval history: This is a 61-year-old female with HTN and TIA (07/2021) who presented to the emergency department with left-sided weakness with unsteadiness, dysarthria, diplopia which started at 2:30 PM on 12/02. Code stroke was initiated, initial NIHSS of 3 and teleneurology was consulted. Teleneurology cleared the patient for tPA. Patient was admitted to the hospitalist service with consults to neurology and [facility] and rehab services. Hospital course to date: 12/03: Patient has slight right-sided droop without any other deficits. Bilat eral carotid ultrasounds, repeat CT head ordered for today and MRI brain ordered. Likely discharge with aspirin and Plavix. 12/04: Pending MRI brain, A1c, lipid panel. Awaiting PT/OT recommendations. Possible discharge home pending assessment. Neuro: Acute CVA s/p tPA -Neurology consulted, appreciate recommendations -CT head showed chronic infarct left frontal region -tPA administration 1630 on 12/02 -Neuro checks per protocol -CTA head and neck showed no acute intracranial abnormality, no flow-limiting stenosis or large vessel occlusion -MRI brain pending -Repeat CT head pending -Bilateral carotid Doppler ultrasound pending -Echocardiogram pending -Lipid panel noted -Hemoglobin A1C pending -Lipitor -Aspirin/Plavix initiation [address] head with no acute hemorrhage -PT/OT consulted, appreciate recommendations Cardiac: h/o HTN -Blood pressure monitoring per protocol -Cozaar -Echocardiogram pending Respiratory: NAD -Supplemental oxygenation as needed -SPO2 monitor per protocol -Pulmonary hygiene GI: Obesity -Cardiac -PPI -CC cardiac diet : NAD -Monitor intake and output -Renally dose medications -Avoid nephrotoxic medications ID: NAD -Monitor WBC and temperature curve Endo: NAD -Avoid hypoglycemia Heme: NAD -Trend CBC -Transfuse hemoglobin less than 7 -SCDs to BLE while in bed Hospitalist Physical - Physical exam Narrative exam: Physical Exam: VITAL SIGNS: Reviewed. GENERAL: The patient appears normally developed, Vital signs as documented. HEAD: No signs of head trauma. EYES: Pupils are equal. Extraocular motions intact. EARS: Hearing grossly intact. MOUTH: Oropharynx is normal. NECK: No adenopathy, no JVD. CHEST: Chest with clear breath sounds bilaterally. No wheezes, rales, or rhonchi. CARDIAC: Regular rate and rhythm. S1 and S2, without murmurs, gallops, or rubs. VASCULAR: No Edema. Peripheral pulses normal and equal in all extremities. ABDOMEN: Soft, non tender and non distended. No rebound or guarding, and no masses palpated. Bowel Sounds normal. MUSCULOSKELETAL: Good range of motion of all major joints. Extremities without clubbing, cyanosis or edema. NEUROLOGIC EXAM: Alert and oriented x 4. no focal sensory or strength deficits. PSYCHIATRIC: Mood normal. SKIN: detail exam as documented in skin assessment - Constitutional Vitals: Temp Pulse Resp BP Pulse Ox 98.6 F 78 16 122/63 93 12/04/21 07:56 12/04/21 07:56 12/04/21 07:56 12/04/21 07:56 12/04/21 07:56 General appearance: Present: no acute distress, well-nourished HEART Score - HEART Score Age: 45-65 Risk factors: 1-2 risk factors Troponin: Troponin T < 0.010 ng/mL (0.00-0.029) 12/02/21 16:17 Troponin: < normal limit - Critical Actions Critical Actions: 0-3 pts:0.9-1.7%risk of adverse cardiac event.Candidate for discharge Results - Labs CBC & Chem 7: 12/03/21 05:30 12/03/21 05:30 Labs: Laboratory Last Values WBC 5.4 K/mm3 (4.5-11.0) 12/03/21 05:30 RBC 4.19 M/mm3 (3.65-5.03) 12/03/21 05:30 Hgb 11.9 gm/dl (10.1-14.3) 12/03/21 05:30 Hct 37.2 % (30.3-42.9) 12/03/21 05:30 MCV 89 fl (79-97) 12/03/21 05:30 MCH 28 pg (28-32) 12/03/21 05:30 MCHC 32 % (30-34) 12/03/21 05:30 RDW 14.5 % (13.2-15.2) 12/03/21 05:30 Plt Count 253 K/mm3 (140-440) 12/03/21 05:30 Lymph % (Auto) 35.5 % (13.4-35.0) H 12/03/21 05:30 Wetzel % (Auto) 7.0 % (0.0-7.3) 12/03/21 05:30 Eos % (Auto) 5.0 % (0.0-4.3) H 12/03/21 05:30 Baso % (Auto) 1.0 % (0.0-1.8) 12/03/21 05:30 Lymph # (Auto) 1.9 K/mm3 (1.2-5.4) 12/03/21 05:30 Wetzel # (Auto) 0.4 K/mm3 (0.0-0.8) 12/03/21 05:30 Eos # (Auto) 0.3 K/mm3 (0.0-0.4) 12/03/21 05:30 Baso # (Auto) 0.1 K/mm3 (0.0-0.1) 12/03/21 05:30 Seg Neutrophils % 51.5 % (40.0-70.0) 12/03/21 05:30 Seg Neutrophils # 2.8 K/mm3 (1.8-7.7) 12/03/21 05:30 PT 13.4 Sec. (12.2-14.9) 12/02/21 16:17 INR 0.92 (0.87-1.13) 12/02/21 16:17 APTT 24.7 Sec. (24.2-36.6) 12/02/21 16:17 Thrombin Time 18.0 Sec. (15.1-19.6) 12/02/21 16:17 Sodium 138 mmol/L (137-145) 12/03/21 05:30 Potassium 3.6 mmol/L (3.6-5.0) 12/03/21 05:30 Chloride 102.9 mmol/L (98-107) 12/03/21 05:30 Carbon Dioxide 25 mmol/L (22-30) 12/03/21 05:30 Anion Gap 14 mmol/L 12/03/21 05:30 BUN 13 mg/dL (7-17) 12/03/21 05:30 Creatinine 0.8 mg/dL (0.6-1.2) 12/03/21 05:30 Estimated GFR > 60 ml/min 12/03/21 05:30 BUN/Creatinine Ratio 16 % 12/03/21 05:30 Glucose 131 mg/dL (65-100) H 12/03/21 05:30 Calcium 9.0 mg/dL (8.4-10.2) 12/03/21 05:30 Total Bilirubin 0.20 mg/dL (0.1-1.2) 12/03/21 05:30 AST 21 units/L (5-40) 12/03/21 05:30 ALT 24 units/L (7-56) 12/03/21 05:30 Alkaline Phosphatase 72 units/L (35-129) 12/03/21 05:30 Total Creatine Kinase 167 units/L (30-135) H 12/02/21 16:17 CK-MB (CK-2) 2.6 ng/mL (0.0-4.0) 12/02/21 16:17 CK-MB (CK-2) Rel Index 1.5 (0-4) 12/02/21 16:17 Troponin T < 0.010 ng/mL (0.00-0.029) 12/02/21 16:17 Total Protein 7.2 g/dL (6.3-8.2) 12/03/21 05:30 Albumin 3.4 g/dL (3.9-5) L 12/03/21 05:30 Albumin/Globulin Ratio 0.9 % 12/03/21 05:30 Roy/IV: Voiding Method External Female Catheter Active Medications - Current Medications Current Medications: Generic Name Dose Route Start Last Admin Trade Name Freq PRN Reason Stop Dose Admin Acetaminophen 650 mg 12/03/21 01:53 Acetaminophen 325 Mg Tab PO Q4H PRN Pain MILD(1-3)/Fever >100.5/BARNETT Aspirin 81 mg 12/04/21 10:00 Aspirin 81 Mg Tab Chew PO QDAY SANTANA Atorvastatin Calcium 40 mg 12/03/21 22:00 12/03/21 21:00 Atorvastatin 40 Mg Tab PO 40 mg QHS SANTANA Administration Clopidogrel Bisulfate 75 mg 12/04/21 10:00 Clopidogrel 75 Mg Tab PO QDAY SANTANA Famotidine 20 mg 12/03/21 10:00 12/03/21 21:00 Famotidine 20 Mg/2 Ml Inj IV 20 mg BID SANTANA Administration Labetalol HCl 10 mg 12/02/21 16:32 Labetalol 20 Mg/4 Ml Inj IV Q5MIN PRN to maintain SBP < 180 Losartan Potassium 25 mg 12/03/21 10:00 12/03/21 09:47 Losartan 25 Mg Tab PO 25 mg QDAY SANTANA Administration Morphine Sulfate 2 mg 12/02/21 17:21 Morphine 2 Mg/1 Ml Inj IV Q4H PRN Pain, Moderate (4-6) Ondansetron HCl 4 mg 12/03/21 01:53 Ondansetron 4 Mg/2 Ml Inj IV Q8H PRN Nausea And Vomiting Sodium Chloride 10 ml 12/03/21 10:00 12/03/21 21:01 Sodium Chloride 0.9% 10 Ml Flush Syringe IV 10 ml BID SANTANA Administration Sodium Chloride 10 ml 12/03/21 01:53 Sodium Chloride 0.9% 10 Ml Flush Syringe IV PRN PRN LINE FLUSH
[2021-12-04] MEDS ORDERED: CLOPIDOGREL 75 MG TAB PO SCH (10:00)
[2021-12-04] MEDS ORDERED: ASPIRIN 81 MG TAB CHEW PO SCH (10:00)
[2021-12-04] MEDS: FAMOTIDINE 20 MG/2 ML INJ IV SCH (10:20)
[2021-12-04] MEDS: LOSARTAN 25 MG TAB PO SCH (10:20)
--- NOTE | 2021-12-04 11:03 | Vascular Lab Report ---
DUPLEX DOPPLER ULTRASOUND CAROTID, BILATERAL INDICATION / CLINICAL INFORMATION: cva. COMPARISON: None available. FINDINGS: RIGHT CAROTID: - PLAQUE ESTIMATE (%): < 50% - CCA velocity: 62 cm/sec. - ICA peak systolic velocity: 71 cm/sec. - ICA/CCA PSV Ratio: Less than 2 Right Vertebral Artery: Antegrade flow. LEFT CAROTID: - PLAQUE ESTIMATE (%): < 50% - CCA velocity: 51 cm/sec. - ICA peak systolic velocity: 90 cm/sec. - ICA/CCA PSV Ratio: Less than 2 Left Vertebral Artery: Antegrade flow. IMPRESSION: 1. Right Internal Carotid Artery: Less than 50% diameter stenosis. 2. Left Internal Carotid Artery: Less than 50% diameter stenosis. Velocity criteria are extrapolated from diameter data as defined by the Society of Radiologists in Ul trasound Consensus Conference, Radiology 2003; 229;340-346. NO STENOSIS (NORMAL) - Plaque = none; ICA PSV < 125 cm/sec; ICA/CCA PSV Ratio < 2.0 <50% STENOSIS - Plaque < 50%; ICA PSV < 125 cm/sec; ICA/CCA PSV Ratio < 2.0 50-69% STENOSIS - Plaque > 50%; ICA PSV = 125-230 cm/sec; ICA/CCA PSV Ratio = 2.0-4.0 >70% BUT <100% STENOSIS - Plaque > 50%; ICA PSV > 230 cm/sec; ICA/CCA PSV Ratio > 4.0 NEAR OCCLUSION - Plaque = visible lumen; ICA PSV = high/low/none; ICA/CCA PSV Ratio = variable TOTAL OCCLUSION - Plaque = no lumen; ICA PSV = none; ICA/CCA PSV Ratio = N/A Signer Name: Chino Monroe DO Signed: 12/04/2021 10:59 AM Workstation Name: [email or web address]
--- NOTE | 2021-12-04 11:32 | Magnetic Resonance Report ---
MRI BRAIN WITHOUT CONTRAST INDICATION / CLINICAL INFORMATION: cva, LT SIDED WEAKNESS, BLURRY VISION. TECHNIQUE: Multisequence, multiplanar images were obtained. COMPARISON: CT head 12/03/2021 FINDINGS: CEREBRAL and CEREBELLAR HEMISPHERES: A 1.5 x 1.0 cm focus of diffusion restriction is identified in t he superior right cerebellum on diffusion image 11. No other areas of diffusion restriction. No midl ine shift. No acute hemorrhage. No extra-axial fluid collection. Chronic focal infarct in the left subinsular cortex measures 1.8 x 0.8 cm in axial plane. Focal chronic infarct is identified in the earl perior left cerebellum measuring up to 1 cm in greatest dimension. Mild chronic microangiopathy findi ngs are noted in the white matter. VENTRICLES: Normal in size and configuration for age. VISUALIZED ORBITS: No significant abnormality. VISUALIZED PARANASAL SINUSES: No significant abnormality. ADDITIONAL FINDINGS: None. IMPRESSION: 1. 1.5 x 1.0 cm area of acute ischemia in the right superior cerebellum. 2. Chronic focal infarcts as described. 3. Mild chronic microvascular ischemic changes in the white matter. Signer Name: Tate Reich Jr, MD Signed: 12/04/2021 11:27 AM Workstation Name: [id number]
[2021-12-04 12:30] LABS: Chol/HDL Ratio 5.06 %; HDL Cholesterol 33 mg/dL (40-59); LDL Cholesterol,Direct TNR mg/dL (50-130)
--- NOTE | 2021-12-04 13:59 | Discharge Summary ---
Providers - Providers Date of Admission: 12/02/21 17:20 Date of discharge: 12/04/21 Attending physician: KEVYN PIMENTEL MD 12/02/21 19:29 Consult to Physician [CONS] Urgent Comment: Dr. Cunningham spoke with Dr. Bob @ 1937 Consulting Provider: MARIO BOB Physician Instructions: Reason For Exam: cva, tpa 12/03/21 01:57 Occupational Therapy Evaluate and Treat [CONS] Routine Comment: Reason For Exam: Neuro deficits Physical Therapy Evaluation and Treat [CONS] Routine Comment: Reason For Exam: Neuro deficits 12/04/21 08:00 Consult to Physician [CONS] Routine Comment: Consulting Provider: SHARITA BROTHERS Physician Instructions: Reason For Exam: CVA Primary care physician: HELMET HAT BRIM CUTTER Hospitalization Reason for admission: slurred speech Condition: Stable Hospital course: Interval history: This is a 61-year-old female with HTN and TIA (07/2021) who presented to the emergency department with left-sided weakness with unsteadiness, dysarthria, diplopia which started at 2:30 PM on 12/02. Code stroke was initiated, initial NIHSS of 3 and teleneurology was consulted. Teleneurology cleared the patient for tPA. Patient was admitted to the hospitalist service with consults to neurology and CCM and rehab services. Hospital course to date: 12/03: Patient has slight right-sided droop without any other deficits. Bilateral carotid ultrasounds, repeat CT head ordered for today and MRI brain ordered. Likely discharge with aspirin and Plavix. 12/04: MRI brain demonstrates 1.5 x 1.0 cm area of acute ischemia in the right superior cerebellum. Chronic focal infarcts noted. Mild chronic microvascular changes noted in white matter. Ultrasound of the carotids did not find any significant stenosis in bilateral internal carotid arteries. Echocardiogram completed demonstrated normal ejection fraction 55%. Lipid panel noted elevated triglycerides 516. Hemoglobin A1c noted to be 6.7. Physical therapy evaluated patient and she was cleared for discharge to home with no needs. Patient is stable for discharge. Will discharge home with aspirin, Plavix, atorvastatin, Cozaar, metformin. She will be instructed to follow-up with her primary care physician in 3 to 5 days. Neuro: Acute ischemic CVA s/p tPA -Neurology consulted, appreciate recommendations -CT head showed chronic infarct left frontal region -tPA administration 1630 on 12/02 -Neuro checks per protocol -CTA head and neck showed no acute intracranial abnormality, no flow-limiting stenosis or large vessel occlusion -MRI brain demonstrates 1.5 x 1.0 cm area of acute ischemia in the right superior cerebellum. Chronic focal infarcts noted. Mild chronic microvascular changes noted in white matter. -Repeat CT head negative for acute findings -Bilateral carotid Doppler ultrasound - no signficant occlusions -Echocardiogram normal EF -Lipid panel - elevated TG -Hemoglobin A1C 6.7 -Lipitor -Aspirin/Plavix initiation [address] head with no acute hemorrhage -PT/OT consulted, appreciate recommendations Cardiac: Hypertension -Blood pressure monitoring per protocol -Cozaar -Echocardiogram pending Respiratory: NAD -Supplemental oxygenation as needed -SPO2 monitor per protocol -Pulmonary hygiene GI: Obesity -Cardiac -PPI -CC cardiac diet : NAD -Monitor intake and output -Renally dose medications -Avoid nephrotoxic medications ID: NAD -Monitor WBC and temperature curve Endo: type 2 diabetes -Avoid hypoglycemia -d/c on metformin Heme: NAD -Trend CBC -Transfuse hemoglobin less than 7 -SCDs to BLE while in bed Disposition: 01 HOME / SELF CARE / HOMELESS Final Discharge Diagnosis (Prints w/discharge instructions): acute ischemic CVA Time spent for discharge: 35 Core Measure Documentation - Palliative Care Palliative Care/ Comfort Measures: Not Applicable - Core Measures Any of the following diagnoses?: stroke - Stroke Discharge Requirements Statin for LDL = or >70 mg/dl on DC: Yes Anticoag for atrial fib/atrial flutter: Not Applicable Antithrombotic for ischemic stroke: Yes Exam - Physical Exam Narrative exam: Physical Exam: VITAL SIGNS: Reviewed. GENERAL: The patient appears normally developed, Vital signs as documented. HEAD: No signs of head trauma. EYES: Pupils are equal. Extraocular motions intact. EARS: Hearing grossly intact. MOUTH: Oropharynx is normal. NECK: No adenopathy, no JVD. CHEST: Chest with clear breath sounds bilaterally. No wheezes, rales, or rhonchi. CARDIAC: Regular rate and rhythm. S1 and S2, without murmurs, gallops, or rubs. VASCULAR: No Edema. Peripheral pulses normal and equal in all extremities. ABDOMEN: Soft, non tender and non distended. No rebound or guarding, and no masses palpated. Bowel Sounds normal. MUSCULOSKELETAL: Good range of motion of all major joints. Extremities without clubbing, cyanosis or edema. NEUROLOGIC EXAM: Alert and oriented x 4. no focal sensory or strength deficits. PSYCHIATRIC: Mood normal. SKIN: detail exam as documented in skin assessment - Constitutional Vitals: Temp Pulse Resp BP Pulse Ox 98.3 F 80 18 136/68 96 12/04/21 11:17 12/04/21 11:17 12/04/21 11:17 12/04/21 11:17 12/04/21 11:17 Plan Follow up with: PRIMARY CARE, [Primary Care Provider] - 3-5 Days
--- NOTE | 2021-12-04 14:22 | Progress Note ---
Assessment and Plan 61 y/o, female with stroke like symptoms s/p TPA 12/04/21: No further critical care needs at this time and no pulm issues. Will sign off. 1. q1hour neuro checks 2. Repeat head CT/MRI in 24 hours 3. Follow up neurology recs, and neuro imaging 4. Should be stable for transfer after 16:30 5. Start anticoagulation then once repeat head CT/MRI is stable. Subjective Date of service: 12/04/21 Interval history: Successful transfer out of unit. Stable. Objective - Constitutional Vitals: Vital Signs - 12hr 12/04/21 12/04/21 12/04/21 05:36 07:56 10:00 Temperature 98.3 F 98.6 F Pulse Rate 77 78 Pulse Rate [ From Monitor] Respiratory 18 16 Rate Blood Pressure 122/63 Blood Pressure 141/60 [Left] O2 Sat by Pulse 93 93 98 Oximetry 12/04/21 12/04/21 10:46 11:17 Temperature 98.3 F Pulse Rate 80 Pulse Rate [ 47 L From Monitor] Respiratory 18 18 Rate Blood Pressure 136/68 Blood Pressure [Left] O2 Sat by Pulse 100 96 Oximetry - Labs CBC & Chem 7: 12/03/21 05:30 12/03/21 05:30 Labs: Abnormal lab results 12/03/21 12/04/21 Range/Units 05:30 Unknown Hemoglobin A1c 6.7 H (4-6) % Triglycerides 516 H (2-149) mg/dL HDL Cholesterol 33 L (40-59) mg/dL Medications & Allergies - Medications Allergies/Adverse Reactions: Allergies No Known Allergies Allergy (Unverified 12/02/21 15:35) Home Medications: Home Medications Medication Instructions Recorded Confirmed Last Taken Type Aspirin [Aspirin BABY CHEW TAB] 81 mg PO QDAY 30 Days #30 tab 12/04/21 Unknown Rx AtorvaSTATin [Lipitor] 40 mg PO QHS 30 Days #30 tablet 12/04/21 Unknown Rx Clopidogrel [Plavix] 75 mg PO QDAY 30 Days #30 tablet 12/04/21 Unknown Rx Losartan [Cozaar] 25 mg PO QDAY 30 Days #30 tablet 12/04/21 Unknown Rx Metformin HCl [metFORMIN] 1,000 mg PO BID 30 Days #60 tab 12/04/21 Unknown Rx Active Medications: Generic Name Dose Route Start Last Admin Trade Name Freq PRN Reason Stop Dose Admin Acetaminophen 650 mg 12/03/21 01:53 Acetaminophen 325 Mg Tab PO Q4H PRN Pain MILD(1-3)/Fever >100.5/BARNETT Aspirin 81 mg 12/04/21 10:00 12/04/21 10:20 Aspirin 81 Mg Tab Chew PO 81 mg QDAY SANTANA Administration Atorvastatin Calcium 40 mg 12/03/21 22:00 12/03/21 21:00 Atorvastatin 40 Mg Tab PO 40 mg QHS SANTANA Administration Clopidogrel Bisulfate 75 mg 12/04/21 10:00 12/04/21 10:20 Clopidogrel 75 Mg Tab PO 75 mg QDAY SANTANA Administration Famotidine 20 mg 12/03/21 10:00 12/04/21 10:20 Famotidine 20 Mg/2 Ml Inj IV 20 mg BID SANTANA Administration Labetalol HCl 10 mg 12/02/21 16:32 Labetalol 20 Mg/4 Ml Inj IV Q5MIN PRN to maintain SBP < 180 Losartan Potassium 25 mg 12/03/21 10:00 12/04/21 10:20 Losartan 25 Mg Tab PO 25 mg QDAY SANTANA Administration Morphine Sulfate 2 mg 12/02/21 17:21 Morphine 2 Mg/1 Ml Inj IV Q4H PRN Pain, Moderate (4-6) Ondansetron HCl 4 mg 12/03/21 01:53 Ondansetron 4 Mg/2 Ml Inj IV Q8H PRN Nausea And Vomiting Sodium Chloride 10 ml 12/03/21 10:00 12/04/21 10:20 Sodium Chloride 0.9% 10 Ml Flush Syringe IV 10 ml BID SANTANA Administration Sodium Chloride 10 ml 12/03/21 01:53 Sodium Chloride 0.9% 10 Ml Flush Syringe IV PRN PRN LINE FLUSH HEART Score - HEART Score Age: 45-65 Risk factors: 1-2 risk factors Troponin: Troponin T < 0.010 ng/mL (0.00-0.029) 12/02/21 16:17 Troponin: < normal limit - Critical Actions Critical Actions: 0-3 pts:0.9-1.7%risk of adverse cardiac event.Candidate for discharge
--- NOTE | 2021-12-04 15:08 | Consultation ---
History of Present Illness Consult date: 12/04/21 Reason for Consult: CVA Chief complaint: Slurred Speech w/ dizziness and blurred vision History of present illness: 61 yo female with htn, tia (s/p loop recorder placement in August 2021) who presented with acute onset of slurred speech, binocular blurred vision, and unsteadiness of gait / imbalance and received IV-tPA in the ED. She has noticed significant improvement of her clinical symptoms and feels like she is back at her baseline. Hospital course noteful for MR Hernandez which reveals a right cerebellar acute infarction. Past History Past Medical History: hypertension, other (tia) Social history: no significant social history Family history: no significant family history Medications and Allergies Allergies Allergy/AdvReac Type Severity Reaction Status Date / Time No Known Allergies Allergy Unverified 12/02/21 15:35 Home Medications Medication Instructions Recorded Confirmed Last Taken Type Aspirin [Aspirin BABY CHEW TAB] 81 mg PO QDAY 30 Days #30 tab 12/04/21 Unknown Rx AtorvaSTATin [Lipitor] 40 mg PO QHS 30 Days #30 tablet 12/04/21 Unknown Rx Clopidogrel [Plavix] 75 mg PO QDAY 30 Days #30 tablet 12/04/21 Unknown Rx Losartan [Cozaar] 25 mg PO QDAY 30 Days #30 tablet 12/04/21 Unknown Rx Metformin HCl [metFORMIN] 1,000 mg PO BID 30 Days #60 tab 12/04/21 Unknown Rx Active Meds: Active Medications Acetaminophen (Acetaminophen 325 Mg Tab) 650 mg PO Q4H PRN PRN Reason: Pain MILD(1-3)/Fever >100.5/BARNETT Aspirin (Aspirin 81 Mg Tab Chew) 81 mg PO QDAY [facility] Last Admin: 12/04/21 10:20 Dose: 81 mg Atorvastatin Calcium (Atorvastatin 40 Mg Tab) 40 mg PO QHS [facility] Last Admin: 12/03/21 21:00 Dose: 40 mg Clopidogrel Bisulfate (Clopidogrel 75 Mg Tab) 75 mg PO QDAY [facility] Last Admin: 12/04/21 10:20 Dose: 75 mg Famotidine (Famotidine 20 Mg/2 Ml Inj) 20 mg IV BID [facility] Last Admin: 12/04/21 10:20 Dose: 20 mg Labetalol HCl (Labetalol 20 Mg/4 Ml Inj) 10 mg IV Q5MIN PRN PRN Reason: to maintain SBP < 180 Losartan Potassium (Losartan 25 Mg Tab) 25 mg PO QDAY [facility] Last Admin: 12/04/21 10:20 Dose: 25 mg Morphine Sulfate (Morphine 2 Mg/1 Ml Inj) 2 mg IV Q4H PRN PRN Reason: Pain, Moderate (4-6) Ondansetron HCl (Ondansetron 4 Mg/2 Ml Inj) 4 mg IV Q8H PRN PRN Reason: Nausea And Vomiting Sodium Chloride (Sodium Chloride 0.9% 10 Ml Flush Syringe) 10 ml IV BID [facility] Last Admin: 12/04/21 10:20 Dose: 10 ml Sodium Chloride (Sodium Chloride 0.9% 10 Ml Flush Syringe) 10 ml IV PRN PRN PRN Reason: LINE FLUSH Review of Systems All systems: negative (as per hpi;) Physical Examination - Vital Signs Vital Signs: Vital Signs Temp Pulse Resp BP Pulse Ox 98.9 F 80 18 163/94 98 12/02/21 15:30 12/02/21 15:30 12/02/21 15:30 12/02/21 15:30 12/02/21 15:30 - Physical Exam Narrative exam: Gen: nad, well-nourished; Head: normocephalic; Eyes: no gaze deviation; no ptosis; ENT: normal vocalization; CVS: warm and well-perfused; Pulm: no respiratory distress; GI: appears non-distended; Ext: no cyanosis appreciated at distal extremities; Skin: no acute rash at distal extremities; Heme: no pathologic ecchymosis appreciated at distal extremities; Neuro: alert, oriented to name, age, month, year, surroundings, [facility], no dysarthria, no aphasia, CN 2 - PERRL, visual mckenzie grossly intact, CN 3, 4, 6 - EOMI, CN 5 - facial sensation symmetric to light touch, CN 7 - facial movement symmetric except mild droop on the right, CN 8 - hearing grossly intact, CN 9, 10 - uvula midline, CN 11 symmetric shoulder movement, CN 12 - tongue midline; Motor - at least 4+/5 at all exts except mild pronation of right hand noted; Sensory - light touch symmetric, Cerebellar - fnf /hts intact, Gait - deferred secondary to fall risk; NIHSS (1a.) Level of Consciousness:0 (1b.) LOC Questions:0 (1c.) LOC Commands:0 (2.) Best Gaze:0 (3.) Visual:0 (4.) Facial Palsy:1 (5a.) Motor Arm, Left:0 (5b.) Motor Arm, Right:1 (6a.) Motor Leg, Left:0 (6b.) Motor Leg, Right:0 (7.) Limb Ataxia:0 (8.) Sensory:0 (9.) Best Language:0 (10.) Dysarthria:0 (11.) Extinction and Inattention:0 NIHSS Total Score: 2 Results - Laboratory Findings CBC and BMP: 12/03/21 05:30 12/03/21 05:30 Abnormal Lab Findings: Abnormal Labs 12/02/21 12/02/21 12/03/21 16:17 16:17 05:30 Lymph % (Auto) 35.5 H Parke % (Auto) 8.9 H Eos % (Auto) 5.0 H Sodium 136 L Glucose 107 H Hemoglobin A1c Total Creatine Kinase 167 H Albumin 3.5 L Triglycerides HDL Cholesterol 12/03/21 12/03/21 12/04/21 05:30 05:30 Unknown Lymph % (Auto) Parke % (Auto) Eos % (Auto) Sodium Glucose 131 H Hemoglobin A1c 6.7 H Total Creatine Kinase Albumin 3.4 L Triglycerides 516 H HDL Cholesterol 33 L Assessment and Plan 61 yo female with htn, tia (s/p loop recorder placement in August 2021) who presented with acute onset of slurred speech, binocular blurred vision, and unsteadiness of gait / imbalance and received IV-tPA in the ED. She has noticed significant improvement of her clinical symptoms and feels like she is back at her baseline. 1. 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 2. Hypertension - aim for normotension. 3. Hx of TIA - antiplatelet/statin therapy. 4. Right Arm Weakness - pt/ot evaluation/monitoring as outpatient is needed. 5. Communicated to RN regarding the outpatient loop recorder inquiry, 1 week off, and pt/ot evaluation/monitoring. needs time off x1 week. Se Easley MD Neurology [id number]
[2021-12-04 16:32] VITALS: BP 124/62
== END 2021-12-04 17:19 | disposition home or self-care (01) | DRG 62 ==
LOC: ED 15:25 → CC1 17:20 → 4A 12-04 00:27
PROVIDERS: ADMIT Internal Medicine; ATTEND Internal Medicine
DX: I63.9 Cerebral infarction, unspecified (principal); G81.94 Hemiplegia, unspecified affecting left nondominant side; E66.9 Obesity, unspecified; Z68.33 Body mass index [BMI] 33.0-33.9, adult; I10 Essential (primary) hypertension; E78.2 Mixed hyperlipidemia; E11.9 Type 2 diabetes mellitus without complications; Z82.49 Family history of ischemic heart disease and other diseases of the circulatory system; Z79.84 Long term (current) use of oral hypoglycemic drugs
CPT/HCPCS: 36415; 70450; 70496; 70498; 70551; 80053; 80061; 82550; 82553; 83036; 84484; 85025; 85610; 85670; 85730; 93005; 93306; 93880; G0378; J3490; C8929; J2997; Q9967